=== PATIENT | female | born 1935 | race Caucasian/White ===

== ENCOUNTER 2019-04-03 10:24 | Observation (INO) | payer OTHER, BC, MEDICARE ==
[2019-04-03] MEDS ORDERED: ACETAMINOPHEN 1,000 MG/100 ML BTL IVPB ONE (10:37)
--- NOTE | 2019-04-03 10:37 | Emergency Department Record ---
History of Present Illness - General Chief Complaint: Trauma Stated Complaint: FALL/WOUND ON LEG Time Seen by Provider: 04/03/19 10:29 Source: Patient, EMS Mode of Arrival: EMS Limitations: No limitations - History of Present Illness Initial Comments: 83 yo female presents by EMS after a fall. The fall occurred in her home at about 8:30am. She was reaching for a magazine that had fallen on the floor and tripped on electrical cords. She denies hitting her head or neck. She is on Coumadin for "strokes". She reports she landed on her left hip/leg. She was unable to stand up due to pain. She denies and headache, neck pain, chest pain. She has mild left wrist pain as well. PCP is Dr Lyman in [place]. The pain in the left hip is sharp if the leg is moved. She is not if much pain is still. MD Complaint: Fall, Pain -: Hour(s) (2) Location: Pelvis Location - Extremities: Left: Hip Consistency: Constant Context: Mechanical fall Associated Symptoms: Denies other symptoms Treatments Prior to Arrival: Other - Related Data Previous Rx's Medication Instructions Recorded Ferrous Sulfate [Iron] 325 mg PO BID #60 tablet 04/27/15 Hydrocodone/Acetaminophen 1 tab PO Q8H PRN #20 tab 04/27/15 [Hydrocodone/Acetaminophen 5mg/325mg] Allergies Allergy/AdvReac Type Severity Reaction Status Date / Time cefaclor [From Ceclor] Allergy Severe HIVES Verified 04/03/19 10:35 clopidogrel bisulfate Allergy Severe ALTERED Verified 04/03/19 10:35 [From Plavix] MENTAL STATUS methylprednisolone sodium Allergy Severe ALTERED Verified 04/03/19 10:35 succinate MENTAL [From Solu-Medrol] STATUS Review of Systems Constitutional: Denies: Chills, Fever, Malaise, Weakness Eyes: Denies: Eye discharge ENT: Denies: Congestion, Throat pain Respiratory: Denies: Cough, Dyspnea Cardiovascular: Denies: Chest pain, Edema, Palpitations, Syncope Endocrine: Denies: Fatigue, Polydipsia, Polyuria Gastrointestinal: Denies: Abdominal pain, Diarrhea, Nausea, Vomiting Genitourinary: Denies: Discharge, Dysuria Musculoskeletal: Reports: As per HPI, Arthralgia, Myalgia. Denies: Back pain Skin: Reports: As per HPI, Bruising Neurological: Denies: Abnormal gait, Headache, Numbness, Seizure, Tingling, Tremors, Vertigo, Weakness Psychiatric: Denies: Anxiety Hematological/Lymphatic: Denies: Easy bleeding, Easy bruising Past Medical History - SOCIAL HISTORY Smoking Status: Former smoker - RESPIRATORY Hx Respiratory Disorders: Yes Hx Asthma: Yes Hx COPD: Yes - CARDIOVASCULAR Hx Cardio Disorders: Yes Hx Cardiac Cath: Yes Hx Heart Attack: Yes (X3) Hx Hypertension: Yes - NEURO Hx Neuro Disorders: Yes Hx Neuropathy: Yes Hx TIA: Yes Comment:: no residual from TIA - GI Hx GI Disorders: Yes Hx Irritable Bowel: Yes - Hx Genitourinary Disorders: No - ENDOCRINE Hx Endocrine Disorders: Yes Hx Diabetes: Yes (Type II) Hx Thyroid Disease: Yes (Hyper) - MUSCULOSKELETAL Hx Musculoskeletal Disorders: No - PSYCH Hx Psych Problems: No - HEMATOLOGY/ONCOLOGY Hx Hematology/Oncology Disorders: No Family Medical History Hx Diabetes: Father, Mother, Grandparents Hx Heart Disease: Father Hx HTN: Father Physical Exam - General General Appearance: Alert, Oriented x3, Cooperative, No acute distress Limitations: No limitations - Head Head exam: Atraumatic, Normocephalic, Normal inspection Head exam detail: negative: Abrasion, Contusion, Hematoma, Laceration - Eye Eye exam: Normal appearance, PERRL. negative: Conjunctival injection, Scleral icterus - ENT ENT exam: Normal exam, Mucous membranes moist Ear exam: Normal external inspection Nasal Exam: Normal inspection Mouth exam: Normal external inspection - Neck Neck exam: Normal inspection, Full ROM. negative: Tenderness - Respiratory Respiratory exam: Normal lung sounds bilaterally. negative: Respiratory distress, Rhonchi, Stridor, Wheezes - Cardiovascular Cardiovascular Exam: Regular rate, Normal rhythm, Normal heart sounds - GI/Abdominal GI/Abdominal exam: Soft. negative: Tenderness - Rectal Rectal exam: Deferred - exam: Deferred - Extremities Extremities exam: Tenderness. negative: Normal inspection, Calf tenderness, Full ROM Image of Full Body: 1 - tenderness, mild posterior bruising, pain with log roll, pain will flexion. Not short or rotated 2 - bruising, non tender, no pain with ROM - Back Back exam: Reports: Normal inspection, Full ROM. Denies: CVA tenderness (R), CVA tenderness (L), Muscle spasm, Paraspinal tenderness, Vertebral tenderness - Neurological Neurological exam: Alert, CN II-XII intact, Oriented X3. negative: Altered - Psychiatric Psychiatric exam: Normal affect, Normal mood - Skin Skin exam: Other (Bruising) Course - Reevaluation(s) Reevaluation #1: 04/03/19 11:27 The CBC was reviewed No acute abnormality The INR is 2.1 The BUN is 45 with CR of 1.3 04/03/19 12:41 The HCT was negative for acute process. Chronic age related changes noted The Pelvic CT was reviewed. No fractures or acute trauma visualized. No hemorrhage. Diverticulosis noted The patient has pain with ROM, and she is unable to bear weight or safety stand or walk. Given her age, unable to stand or ambulate she is not safe for DC Given her age, lives alone and pain I recommend admission for evaluation, recheck, and possible physical therapy This was discussed with Jeny Raymundo [employer] for admission Medical Decision Making - Lab Data Result diagrams: 04/03/19 10:17 04/03/19 10:17 Disposition Disposition: Admit Clinical Impression: Fall, Intractable pain, Renal insufficiency Contusion, hip Qualifiers: Encounter type: initial encounter Laterality: left Qualified Code(s): S70.02XA - Contusion of left hip, initial encounter Disposition: Acute Care Hospital Transfer Decision to Admit: Admit from ER Decision to Admit Date: 04/03/19 Decision to Admit Time: 12:43 Condition: (2) Stable Forms: Patient Portal Access Time of Disposition: 12:43 Quality - Quality Measures Quality Measures: N/A - Blood Pressure Screening Does Patient Have Any of the Following: Active Dx of HTN Blood Pressure Classification: Hypertensive Reading Systolic Measurement: 201 Diastolic Measurement: 95 Screening for High Blood Pressure: Patient Exclusion, Hx of HTN [[id number]]
[2019-04-03 10:55] LABS: HEMATOCRIT 45.1 % (35.0-47.0); HEMOGLOBIN 13.8 gm/dl (11.6-16.0); MEAN CELL VOLUME 86.1 fl (81-97); MEAN CORPUSCULAR HEMOGLOBIN 26.3 pg (27-33); MEAN CORPUSCULAR HGB CONC 30.6 g/dl (32-36); MEAN PLATELET VOLUME 11.1 fl (7.4-10.4); PLATELET COUNT 275 K/uL (130-400); RED BLOOD COUNT 5.24 M/uL (3.80-5.40); RED CELL DISTRIBUTION WIDTH 14.3 % (11.5-14.5); WHITE BLOOD COUNT W/O DIFF 8.6 K/uL (4.2-12.2)
[2019-04-03 11:05] LABS: INR 2.2; PARTIAL THROMBOPLASTIN TIME 35.7 SECONDS (24.5-39.1); PROTHROMBIN TIME (PATIENT) 21.4 SECONDS (9.5-12.1)
[2019-04-03 11:10] LABS: BILIRUBIN,TOTAL 0.3 mg/dL (0.2-1.0); CREATININE 1.3 mg/dL (0.5-0.9)
[2019-04-03 11:11] LABS: TOTAL PROTEIN 7.7 g/dL (6.6-8.7)
[2019-04-03 11:15] LABS: ALB/GLOB RATIO 1.1 (1.1-1.8); ALBUMIN 4.1 g/dL (4.0-5.0)
--- NOTE | 2019-04-03 12:28 | CT SCAN REPORT ---
EXAMINATION: CT Head without IV Contrast EXAM DATE: 04/03/2019 11:53 AM TECHNIQUE: Standard protocol CT images of the head were obtained without intravenous contrast. Pina l and sagittal reconstructed images were created. INDICATION: fall, on coumadin COMPARISON: CT brain April 22, 2015 HAND DOMINANCE: Unknown. ENCOUNTER: Not applicable FINDINGS: 1. There is no intracranial mass, midline shift, extraaxial fluid collection or hemorrhage. 2. The ventricles, sulci and cisterns are prominent consistent with mild diffuse cerebral atrophy.. 3. Mild areas of low-attenuation are seen in the periventricular white matter and subcortical white matter most consistent with chronic small vessel ischemia. No loss of womack-white matter differentiati on or sulcal effacement to indicate acute infarction. 4. No depressed or widely calvarial fracture. 5. The visualized aspects of the orbits, paranasal sinuses, and mastoid air cells are unremarkable e xcept for bilateral ocular lens replacement and scleral calcifications.. IMPRESSION: 1. No acute intracranial hemorrhage, mass lesion or mass effect. 2. No depressed or widely calvarial fracture. 3. Mild diffuse cerebral atrophy and chronic small vessel ischemia. Dictated by: Kelvin Philip MD on 04/03/2019 12:16 PM. .
--- NOTE | 2019-04-03 12:29 | CT SCAN REPORT ---
EXAMINATION: CT of the Pelvis without Intravenous Contrast. EXAM DATE: 04/03/2019 11:53 AM TECHNIQUE: A standard CT pelvis protocol was performed without intravenous contrast. Sagittal and cor onal images were reconstructed. INDICATION: fall, on coumadin COMPARISON: None ENCOUNTER: Not applicable FINDINGS: Ureters & Bladder: Both distal ureters have a normal caliber and the urinary bladder is unremarkable . Gastrointestinal: Colonic diverticulosis without evidence diverticulitis. Reproductive Organs: Status post hysterectomy. Lymphatic System: There is no adenopathy within the pelvis. Vasculature: Moderate atherosclerosis. No aneurysm. Peritoneum: There is no free fluid within the pelvis. Retroperitoneum: There is no retroperitoneal mass, hemorrhage, or hematoma. Abdominal Wall & Musculoskeletal: No acute pelvic or hip fracture or dislocation. Internal fixation h ardware transfixing an old, healed right hip fracture. No evidence of hardware failure or loosening. Mild to moderate degenerative changes within both hips and both sacroiliac joints. Degenerative disc disease at L4-L5 and L5-S1. There is no evidence of hematoma within the subcutaneous soft tissues. 3-D imaging: Performed. IMPRESSION: 1. No evidence of pelvic or hip fracture. 2. No evidence of hemorrhage within the pelvis. 3. Colonic diverticulosis. Dictated by: Sawyer Carvalho MD on 04/03/2019 12:20 PM. .
--- NOTE | 2019-04-03 12:30 | RADIOLOGY REPORT ---
EXAMINATION: Left Wrist Complete, Minimum Three Views EXAM DATE: 04/03/2019 12:00 PM TECHNIQUE: PA, lateral, and oblique INDICATION: fall COMPARISON: None ENCOUNTER: Initial FINDINGS: 3 views of the left wrist show no evidence of acute fracture or dislocation. Alignment is anatomic. M ild to moderate degenerative changes are present within the first carpal metacarpal joint. IMPRESSION: No fracture or dislocation. Dictated by: Sawyer Carvalho MD on 04/03/2019 12:27 PM. .
[2019-04-03] MEDS ORDERED: ALBUTEROL HFA 8 GM INHALER INH PRN (14:18)
[2019-04-03] MEDS ORDERED: 0.9 % SODIUM CHLORIDE 1000ML 1,000 ML IV ONE ×2 (14:18→16:44)
[2019-04-03] MEDS ORDERED: ACETAMINOPHEN 1,000 MG/100 ML BTL IVPB SCH (16:00)
--- NOTE | 2019-04-03 16:43 | History & Physical ---
History of Present Illness - Date of Service Date of Service for History & Physical: 04/04/19 - History of Present Illness Admitting Diagnosis: Fall, Intractable hip pain History of Present Illness: 83 y female presents to ER for fall at home, tripped on carpet, fell on right hip. Denies hitting head or LOC. Trauma code was activated r/t falling on couma din. Pt is on coumadin for Afib. PMH CHF, Afib, GI bleed, right hip FX. CT head neg for acute process, shows age r/t changes Pelvic CT- neg left hip, right hip replacement intact and correctly seated -Wrist XR neg Selected Entries 04/03/19 04/03/19 10:26 14:19 Temperature 97.9 F 98.1 F Pulse Rate 60 52 L Respiratory 20 20 Rate Blood Pressure 201/95 135/49 Pulse Ox 97 97 Oxygen Flow 2 2 Rate Oxygen Delivery Nasal Cannula Nasal Cannula Method Laboratory Tests 04/03/19 04/03/19 04/03/19 10:17 10:17 10:17 WBC 8.6 Hgb 13.8 Hct 45.1 MCV 86.1 Plt Count 275 PT 21.4 H INR 2.2 APTT 35.7 Sodium 139 Potassium 4.9 H Chloride 98 Carbon Dioxide 25.0 Anion Gap 16.0 BUN 45 H Creatinine 1.3 H Estimated GFR 42 Random Glucose 196 H Calcium 9.6 Total Bilirubin 0.30 AST 26 ALT 16 Alkaline Phosphatase 91 Total Protein 7.7 Albumin 4.1 Globulin 3.6 Albumin/Globulin Ratio 1.1 04/03/19 Pt sitting EOB, noted shortness of breath, crackles noted roland bases. BNP ordered, decreased fluid infusion. Pt able to stand and pivot to bedside commode with SBA. Pain controlled with tylenol at this time. No excessive bruising noted. Moving left and right leg with no difficulty. Pt is A&ox4. Continue to monitor VS and symptoms. POC PT/OT eval in the am, pain control, and ADL assistance. PCP [facility] Travel Screening - Travel/Exposure Within Last 30 Days Have you traveled within the last 30 days?: No - Travel/Exposure Within Last Year Have you traveled outside the [place] in the last year?: No - Additonal Travel Details Have you been exposed to anyone with a communicable illness?: No - Travel Symptoms Symptom Screening: None Review of Systems Constitutional: Denies: Chills, Fever, Malaise, Weakness Eyes: Denies: Eye discharge ENT: Denies: Congestion, Throat pain Respiratory: Denies: Cough, Dyspnea Cardiovascular: Denies: Chest pain, Edema, Palpitations, Syncope Endocrine: Denies: Fatigue, Polydipsia, Polyuria Gastrointestinal: Denies: Abdominal pain, Diarrhea, Nausea, Vomiting Genitourinary: Denies: Discharge, Dysuria Musculoskeletal: Reports: As per HPI, Arthralgia, Myalgia. Denies: Back pain Skin: Reports: As per HPI, Bruising Neurological: Denies: Abnormal gait, Headache, Numbness, Seizure, Tingling, Bacilio mors, Vertigo, Weakness Psychiatric: Denies: Anxiety Hematological/Lymphatic: Denies: Easy bleeding, Easy bruising Past Medical History - SOCIAL HISTORY Smoking Status: Former smoker Alcohol Use: None Drug Use: None - RESPIRATORY Hx Respiratory Disorders: Yes Hx Asthma: Yes Hx COPD: Yes - CARDIOVASCULAR Hx Cardio Disorders: Yes Hx Cardiac Cath: Yes Hx CHF: Yes Hx Heart Attack: Yes (X3) Hx Hypertension: Yes - NEURO Hx Neuro Disorders: Yes Hx Neuropathy: Yes Hx TIA: Yes (x3) Comment:: no residual from TIA - GI Hx GI Disorders: Yes Hx GI Bleed: Yes (cauterized lesions in stomach) Hx Irritable Bowel: Yes - Hx Genitourinary Disorders: Yes Hx Renal Disease: Yes (3rd stage CKD) - ENDOCRINE Hx Endocrine Disorders: Yes Hx Diabetes: Yes (Type II) Hx Thyroid Disease: Yes (Hypo) - MUSCULOSKELETAL Hx Musculoskeletal Disorders: No - PSYCH Hx Psych Problems: No - HEMATOLOGY/ONCOLOGY Hx Hematology/Oncology Disorders: No Hx Clotting Problems: Yes (factor IV ??) Hx Blood Transfusions: Yes Hx Blood Transfusion Reaction: No Family Medical History Any Significant Family History?: No Hx Diabetes: Father, Mother, Grandparents Hx Heart Disease: Father Hx HTN: Father H&P Meds/Allergies - Allergies Allergies: Allergies Allergy/AdvReac Type Severity Reaction Status Date / Time cefaclor [From Ceclor] Allergy Severe HIVES Verified 04/03/19 10:35 clopidogrel bisulfate Allergy Severe ALTERED Verified 04/03/19 10:35 [From Plavix] MENTAL STATUS methylprednisolone sodium Allergy Severe ALTERED Verified 04/03/19 10:35 succinate MENTAL [From Solu-Medrol] STATUS - Home Medications Home Medications Medication Instructions Recorded Confirmed Last Taken Fluticasone Propion/Salmeterol 1 puff INH BID 04/03/19 04/03/19 04/03/19 [Advair 250-50 Diskus] Furosemide [Lasix] 40 mg PO BID 04/03/19 04/03/19 04/03/19 Isosorbide Mononitrate [Imdur] 60 mg PO DAILY 04/03/19 04/03/19 04/03/19 Lisinopril [Prinivil] 5 mg PO DAILY 04/03/19 04/03/19 04/03/19 Melatonin 10 mg PO QHS 04/03/19 04/03/19 04/02/19 Montelukast Sodium [Singulair] 10 mg PO QHS 04/03/19 04/03/19 04/02/19 Pantoprazole Sodium [Protonix] 40 mg PO BID 04/03/19 04/03/19 04/03/19 Potassium Chloride [Klor-Con M20] 20 meq PO DAILY 04/03/19 04/03/19 04/03/19 Sitagliptin Phosphate [Januvia] 100 mg PO DAILY 04/03/19 04/03/19 04/03/19 Warfarin Sodium [Coumadin] 3 mg PO WEEKLY 04/03/19 04/03/19 04/03/19 - Active Medications Active Medications: Current Medications Acetaminophen (Tylenol 500mg Tab) 1,000 mg PO Q8HR ABDI[facility] Albuterol Sulfate (Ventolin Hfa) 2 puff INH Q4H PRN PRN Reason: DIFFICULTY IN BREATHING Sodium Chloride () 1,000 mls @ 100 mls/hr IV .Q10H ONE Stop: 04/04/19 00:17 (Tiotropium Sontag ([Spiriva] 1 Puff)) 1 puff INH DAILY ABDIEL Advair 250/50mcg 1 each INH BID [facility] Metoprolol Succinate (50mg) 1 each PO DAILY [facility] Warfarin 1mg 2 each PO QHS [facility] Isosorbide (Mononitrate Er 60mg) 1 each PO DAILY [facility] Lisinopril 5mg 1 each PO DAILY [facility] Melatonin 10mg 1 each PO QHS [facility] Montelukast 10mg 1 each PO QHS [facility] Pantoprazole 40mg 1 each PO BID [facility] Januvia (Sitagliptin () 100mg) 1 each PO DAILY [facility] Physical Exam - Vital Signs Vital Signs: Vital Signs - Last 24 Hrs Temp Pulse Pulse Resp BP BP Pulse Ox 04/03/19 15:48 20 04/03/19 14:21 58 L 20 153/76 04/03/19 14:19 98.1 F 52 L 20 135/49 97 04/03/19 10:26 97.9 F 60 20 201/95 97 - General General Appearance: Alert, Oriented x3, Cooperative, No acute distress Limitations: No limitations - Head Head exam: Atraumatic, Normocephalic, Normal inspection Head exam detail: negative: Abrasion, Contusion, Hematoma, Laceration - Eye Eye exam: Normal appearance, PERRL. negative: Conjunctival injection, Scleral icterus - ENT ENT exam: Normal exam, Mucous membranes moist Ear exam: Normal external inspection Nasal Exam: Normal inspection Mouth exam: Normal external inspection - Neck Neck exam: Normal inspection, Full ROM. negative: Tenderness - Respiratory Respiratory exam: Normal lung sounds bilaterally. negative: Respiratory distr ess, Rhonchi, Stridor, Wheezes - Cardiovascular Cardiovascular Exam: Regular rate, Normal rhythm, Normal heart sounds - GI/Abdominal GI/Abdominal exam: Soft. negative: Tenderness - Rectal Rectal exam: Deferred - exam: Deferred - Extremities Extremities exam: Tenderness. negative: Normal inspection, Calf tenderness, Full ROM - Back Back exam: Reports: Normal inspection, Full ROM. Denies: CVA tenderness (R), CVA tenderness (L), Muscle spasm, Paraspinal tenderness, Vertebral tenderness - Neurological Neurological exam: Alert, CN II-XII intact, Oriented X3. negative: Altered - Psychiatric Psychiatric exam: Normal affect, Normal mood - Skin Skin exam: Other (Bruising) Results - Labs Result Diagrams: 04/03/19 10:17 04/03/19 10:17 Labs Last 24 Hours: Laboratory Results - last 24 hr 04/03/19 04/03/19 04/03/19 10:17 10:17 10:17 WBC 8.6 RBC 5.24 Hgb 13.8 Hct 45.1 MCV 86.1 MCH 26.3 L MCHC 30.6 L RDW 14.3 Plt Count 275 MPV 11.1 H Neutrophils % 81.0 H Band Neutrophils % 0.0 Eosinophils % Not Reportable Basophils % Not Reportable Absolute Neutrophils 6.60 Lymphocytes 8.0 L Monocytes 9.0 Basophils 0.0 Eosinophil Count 2.0 PT 21.4 H INR 2.2 APTT 35.7 Sodium 139 Potassium 4.9 H Chloride 98 Carbon Dioxide 25.0 Anion Gap 16.0 BUN 45 H Creatinine 1.3 H Estimated GFR 42 Random Glucose 196 H Calcium 9.6 Total Bilirubin 0.30 AST 26 ALT 16 Alkaline Phosphatase 91 Total Protein 7.7 Albumin 4.1 Globulin 3.6 Albumin/Globulin Ratio 1.1 - Imaging and Cardiology CT scan - pelvis Status: Report reviewed CT scan - head Status: Report reviewed VTE H&P Assessment - Risk for VTE Risk for VTE: Yes Risk Level: High Risk Assessment Date: 04/03/19 Risk Assessment Time: 16:54 VTE Orders Placed or Will Be Placed: No VTE Reason for No Prophylaxis: Contraindicated (pt on coumadin for anticoagulation) Plan - Detailed Diagnosis and Plan (1) Contusion, hip Current Visit: Yes Status: Acute Qualifiers: Encounter type: initial encounter Laterality: left Qualified Code(s): S70 .02XA - Contusion of left hip, initial encounter Base Code: S70.00XA - CONTUSION OF UNSPECIFIED HIP, INITIAL ENCOUNTER Comment: 04/03/19 -bruising noted to left buttock, soft and mildly TTP -no abrasions noted (2) Acute pain Current Visit: Yes Status: Acute Base Code: R52 - PAIN, UNSPECIFIED Comment: 04/03/19 -pt up to bedside commode with SBA, pain controlled with tylenol (3) Fall Current Visit: Yes Status: Acute Base Code: W19.XXXA - UNSPECIFIED FALL, INITIAL ENCOUNTER Comment: 04/03/19 Pt fell at home, reports tripping on carpet, landing on left hip, denies hitting head (4) Renal insufficiency Current Visit: Yes Status: Acute Base Code: N28.9 - DISORDER OF KIDNEY AND URETER, UNSPECIFIED Comment: 04/03/19 -reports of chronic renal impairement noted by ER provider during report (5) Shortness of breath Current Visit: No Status: Acute Base Code: R06.02 - SHORTNESS OF BREATH Comment: 04/03/19 -pt has shortness of breath and crackles ROLAND -BNP pending, pt has h/o CHF -fluids at 50/hr but will give dieuretic and monitor symptoms (6) Anticoagulated on Coumadin Current Visit: No Status: Acute Base Code: Z51.81 - ENCOUNTER FOR THERAPEUTIC DRUG LEVEL MONITORING; Z79.01 - RETIREMENT (CURRENT) USE OF ANTICOAGULANTS Priority: High Comment: 04/03/19 -anticoagulated with coumadin, INR 2.2 -H/H 13.8/45.1 (7) DVT prophylaxis Current Visit: No Status: Acute Base Code: [id number] - Priority: High Comment: 04/03/19 -pt on coumadin, INR 2.2
[2019-04-03] MEDS: ACETAMINOPHEN 500 MG TABLET PO SCH ×2 (17:28→22:24)
[2019-04-03] MEDS ORDERED: MONTELUKAST 10MG PO SCH (22:00)
[2019-04-03] MEDS ORDERED: WARFARIN 1 MG PO SCH (22:00)
[2019-04-03] MEDS ORDERED: FERROUS SULFATE 325 MG TAB PO SCH (22:00)
[2019-04-03] MEDS ORDERED: MELATONIN 10MG PO SCH (22:00)
[2019-04-03] MEDS: PANTOPRAZOLE 40MG PO SCH (22:23)
[2019-04-03] MEDS: ADVAIR INH SCH (22:58)
[2019-04-04] MEDS: ACETAMINOPHEN 500 MG TABLET PO SCH (07:25)
[2019-04-04] MEDS: ADVAIR INH SCH (09:32)
--- NOTE | 2019-04-04 09:40 | Rehab Evaluation ---
Patient Information - Patient Information Diagnosis: hip contusion Ordered Treatment: PT Evaluate and Treat Status: Initial Evaluation History: Detail (The patient arrived in ED on 04/03/19 after tripping over an electrical cord and falling. The patient was unable to get up from the floor due to the height of her furniture per her report.) Past Medical/Surgical Hx: PAST MEDICAL/SURGICAL HISTORY Past Surgical History Hysterectomy Gallbladder Apendix T&A right TKR plate and screws in right hip PMH - Respiratory Hx Respiratory Disorders Yes Hx Asthma Yes Hx Chronic Obstructive Yes Pulmonary Disease (COPD) PMH - Cardiovascular Hx Cardiovascular Disorders Yes Hx Cardiac Catheterization Yes Hx Congestive Heart Failure Yes Hx Heart Attack Yes: X3 Hx Hypertension Yes Hx Transient Ischemic Attacks Yes: x3 (TIA) PMH - Neuro Hx Neurological Disorders Yes Hx Neuropathy Yes Hx Transient Ischemic Attacks Yes: x3 (TIA) Comment: no residual from TIA PMH - GI Hx Gastrointestinal Disorders Yes Hx Gastrointestinal Bleed Yes: cauterized lesions in stomach Hx Irritable Bowel Yes PMH - Hx Genitourinary Disorders Yes 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 Hx Blood Transfusion Reaction No Premorbid Status: Detail (The patient was independent with all ADL's prior to fall and was ambulatory without device except for community distances when she w ould use her 4 wheeled walker. The patient was driving.) Social History: Detail (The patient lives alone in a one story house with no stairs at the enterance. The patient does have to climb a flight of stairs on occasion to get into her car. The bathroom is equipped with: a walk in shower with a seat and grab bar, elevated toilet with no grab bars. The patient has a 4 wheeled walker and two canes ( straight cane and quad cane).) Precautions: [place], Fall - Time With Patient Total Time Spent With Patient (Min): 30 Treatment Procedures: Detail (Initial Evaluation, Fall prevention instruction.) Subjective Information - Subjective Information Per Patient (The patient has complaints of left hip soreness/ stiffness but not pain.) Objective Data - Mental Status Patient Orientation: Oriented x3 - Visual Perception Appears within normal limits for therapeutic activities - ROM Within normal limits (The patient's RLE AROM was WFL. L knee and ankle AROM was WNL. L hip was not tested due to complaints of soreness (pt. winced with hip movement), however the patient was able cross L leg over R to put her slipper on.) - Strength/Tone Within normal limits (The patient's R LE strength was generally 4+ to 5/5. L knee and ankle strength was 4+ to 5/5. Patient's L hip strength was not fully tested with resistance due to L hip soreness and pt. wincing with resistance however L hip strength was fuctional.) - Bed Mobility Independent (Bed mobility was not tested secondary to pt. was up in recliner however she denied difficulty getting in and out of bed.) - Transfers Independent (The patient was independent with sit to and from stand transfer.) - Balance Balance Sitting: Good Balance Standing: Good (The patient was able to stand without support and tolerate perturbations in all directions without loss of balance. The patient's balance was not formally using an objective balance test.) - Gait Detail (The patient ambulated without device a few steps but exhibited decreased tolerance to weight bearing on L LE. The patient ambulated with front wheeled walker a distance of 80 feet x1 with 2 L of O2 independently ( assist with equipment only). The patient's gait pattern was characterized by decreased weight bearing on L LE due to complaints of L hip soreness and stiffness. Stair climbing was not completed due to patient not having stairs at home.) Therapy Assessment - Therapy Assessment Detail (The patient was independent with all mobility however pt. exhibited decreased weight bearing on the L LE which PT feels will resolve with time. Pt. told to consult with primary physician if L hip soreness did not resolve. Discussed with pt. fall prevention techniques including how to get up from the floor, home inspection and exercise programs including radha chi. Pt. stated she has taken radha chi in the past which helped her balance. The patient was given written handouts on fall prevention. Due to independence with mobility patient does not require ongoing PT at this time. Pt. was in agreement with not requiring ongoing PT.) Patient Education - Patient Education Teaching Topic: Exercise/Activity (The patient was given fall prevention materials.) Response: Verbalize Understanding Teaching Method: Discussion, Handout Teaching Recipient: Family Barriers To Learning: Age Related Problem List - Problem List Physical Therapy Problem List: Detail (L hip soreness and stiffness.) Goals - Goals Physical Therapy Goals: No inpatient PT goals are identified at this time. Plan - Plan Physical Therapy Plan: The patient does not require inpt. or ongoing PT at this time. The patient was instructed to consult primary physician if L hip soreness and stiffness persisted.
[2019-04-04] MEDS ORDERED: PRAVASTATIN SODIUM PO SCH (10:00)
[2019-04-04] MEDS ORDERED: LOSARTAN PO SCH (10:00)
[2019-04-04] MEDS ORDERED: JANUVIA 100 MG PO SCH (10:00)
[2019-04-04] MEDS ORDERED: ISOSORBIDE MONONITRATE 60 MG PO SCH (10:00)
[2019-04-04] MEDS ORDERED: HYDROCHLOROTHIAZIDE PO SCH (10:00)
[2019-04-04] MEDS ORDERED: TIOTROPIUM BROMIDE INH SCH (10:00)
[2019-04-04] MEDS ORDERED: LISINOPRIL 5 MG PO SCH (10:00)
[2019-04-04] MEDS ORDERED: LEVOTHYROXINE SOD 112 MCG TAB PO SCH (10:00)
[2019-04-04] MEDS ORDERED: METOPROLOL SUCCINATE 50MG PO SCH (10:00)
[2019-04-04] MEDS: PANTOPRAZOLE 40MG PO SCH (10:07)
[2019-04-04] MEDS ORDERED: FUROSEMIDE IV 40MG/4ML VIAL IVP ONE (10:20)
--- NOTE | 2019-04-04 10:39 | Discharge Summary ---
Providers Discharge Summary Date: 04/04/19 Date of admission: 04/03/19 13:38 Expected Date of Discharge: 04/04/19 Attending physician: HILTON WEIR Primary care physician: SHARLA OCHOA M.D. Physical Exam - Vital Signs Vital Signs: Vital Signs - Last 24 Hrs Temp Pulse Pulse Resp BP BP Pulse Ox 04/04/19 09:34 88 16 92 L 04/04/19 05:24 98.7 F 68 20 172/60 93 L 04/03/19 21:16 97.7 F 55 L 18 156/43 92 L 04/03/19 17:00 16 98 04/03/19 15:48 20 04/03/19 14:21 58 L 20 153/76 99 04/03/19 14:19 98.1 F 52 L 20 135/49 97 - General General Appearance: Alert, Oriented x3, Cooperative, No acute distress Limitations: No limitations - Head Head exam: Atraumatic, Normocephalic, Normal inspection Head exam detail: negative: Abrasion, Contusion, Hematoma, Laceration - Eye Eye exam: Normal appearance, PERRL. negative: Conjunctival injection, Scleral icterus - ENT ENT exam: Normal exam, Mucous membranes moist Ear exam: Normal external inspection Nasal Exam: Normal inspection Mouth exam: Normal external inspection - Neck Neck exam: Normal inspection, Full ROM. negative: Tenderness - Respiratory Respiratory exam: Normal lung sounds bilaterally. negative: Respiratory distress, Rhonchi, Stridor, Wheezes - Cardiovascular Cardiovascular Exam: Regular rate, Normal rhythm, Normal heart sounds Peripheral Pulses: 2+: Dorsalis Pedis (R), Dorsalis Pedis (L) - GI/Abdominal GI/Abdominal exam: Soft. negative: Tenderness - Rectal Rectal exam: Deferred - exam: Deferred - Extremities Extremities exam: Tenderness (left buttock/hip). negative: Normal inspection, Calf tenderness, Full ROM - Back Back exam: Reports: Normal inspection, Full ROM. Denies: CVA tenderness (R), CV A tenderness (L), Muscle spasm, Paraspinal tenderness, Vertebral tenderness - Neurological Neurological exam: Alert, CN II-XII intact, Oriented X3. negative: Altered - Psychiatric Psychiatric exam: Normal affect, Normal mood - Skin Skin exam: Other (Bruising) Hospitalization - Hospitalization Admission Diagnosis: Fall, Intractable hip pain - Problem List/Discharge Diagnosis (1) Contusion, hip Current Visit: Yes Status: Acute Discharge Diagnosis: Encounter type: initial encounter Laterality: left Qualified Code(s): S70.02XA - Contusion of left hip, initial encounter Base Code: S70.00XA - CONTUSION OF UNSPECIFIED HIP, INITIAL ENCOUNTER Comment: 04/04/19 -bruising remains soft, no current concers for hematoma 04/03/19 -bruising noted to left buttock, soft and mildly TTP -no abrasions noted (2) Acute pain Current Visit: Yes Status: Acute Base Code: R52 - PAIN, UNSPECIFIED Comm ent: 04/04/19 -pt denies any pain with ambulation, using walker per baseline 04/03/19 -pt up to bedside commode with SBA, pain controlled with tylenol (3) Fall Current Visit: Yes Status: Acute Base Code: W19.XXXA - UNSPECIFIED FALL, INITIAL ENCOUNTER Comment: 04/04/19 -PT/OT has cleared pt to d/c with out need for home PT/OT -pt daughter staying with her for a few days while she is recovering from her fall 04/03/19 Pt fell at home, reports tripping on carpet, landing on left hip, denies hitting head (4) Renal insufficiency Current Visit: Yes Status: Acute Base Code: N28.9 - DISORDER OF KIDNEY AND URETER, UNSPECIFIED Comment: 04/03/19 -reports of chronic renal impairement noted by ER provider during report (5) Shortness of breath Current Visit: No Status: Acute Base Code: R06.02 - SHORTNESS OF BREATH Comment: 04/04/19 -SOB has resolved, lungs DIM but no crackles noted -BNP 1300, lasix 40mg IVP given and pt to return to her Lasix 40mg BID PO home med 04/03/19 -pt has shortness of breath and crackles ROLAND -BNP pending, pt has h/o CHF -fluids at 50/hr but will give dieuretic and monitor symptoms (6) Anticoagulated on Coumadin Current Visit: No Status: Acute Base Code: Z51.81 - ENCOUNTER FOR THERAPEUTIC DRUG LEVEL MONITORING; Z79.01 - SKILLED NURSING (CURRENT) USE OF ANTICOAGULANTS Comment: 04/04/19 -anticoagulated with coumadin, INR 2.2 -H/H 13.8/45.1 (7) DVT prophylaxis Current Visit: No Status: Acute Base Code: [id number] - Comment: 04/04/19 -pt on coumadin, INR 2.2 - Hospitalization Course Disposition: Home, Self-Care Hospital Course: 83 y female presents to ER for fall at home, tripped on carpet, fell on right hip. Denies hitting head or LOC. Trauma code was activated r/t falling on coumadin. Pt is on coumadin for Afib. PMH CHF, Afib, GI bleed, right hip FX. CT head neg for acute process, shows age r/t changes Pelvic CT- neg left hip, right hip replacement intact and correctly seated -Wrist XR neg Selected Entries 04/03/19 04/03/19 10:26 14:19 Temperature 97.9 F 98.1 F Pulse Rate 60 52 L Respiratory 20 20 Rate Blood Pressure 201/95 135/49 Pulse Ox 97 97 Oxygen Flow 2 2 Rate Oxygen Delivery Nasal Cannula Nasal Cannula Method Laboratory Tests 04/03/19 04/03/19 04/03/19 10:17 10:17 10:17 WBC 8.6 Hgb 13.8 Hct 45.1 MCV 86.1 Plt Count 275 PT 21.4 H INR 2.2 APTT 35.7 Sodium 139 Potassium 4.9 H Chloride 98 Carbon Dioxide 25.0 Anion Gap 16.0 BUN 45 H Creatinine 1.3 H Estimated GFR 42 Random Glucose 196 H Calcium 9.6 Total Bilirubin 0.30 AST 26 ALT 16 Alkaline Phosphatase 91 Total Protein 7.7 Albumin 4.1 Globulin 3.6 Albumin/Globulin Ratio 1.1 04/03/19 Pt sitting EOB, noted shortness of breath, crackles noted roland bases. BNP ordered, decreased fluid infusion. Pt able to stand and pivot to bedside commode with SBA. Pain controlled with tylenol at this time. No excessive bruising noted. Moving left and right leg with no difficulty. Pt is A&ox4. Continue to monitor VS and symptoms. POC PT/OT eval in the am, pain control, and ADL assistance. PCP Esmer Procedures: Imaging and X-Rays 04/03/19 10:30 HEAD WO CONTRAST [CT] Stat PELVIS WO CONTRAST [CT] Stat 04/03/19 10:32 WRIST, LEFT 3 VIEWS [RAD] Stat Cardiology Procedures 04/03/19 10:30 Housing Management Officer NOW Abnormal Labs: Abnormal Lab Results 04/03/19 04/03/19 04/03/19 Range/Units 10:17 10:17 10:17 MCH 26.3 L (27-33) pg MCHC 30.6 L (32-36) g/dl MPV 11.1 H (7.4-10.4) fl Neutrophils % 81.0 H (47-80) % Lymphocytes 8.0 L (16-45) % PT 21.4 H (9.5-12.1) SECONDS Potassium 4.9 H (3.4-4.5) mmol/L BUN 45 H (8-23) mg/dL Creatinine 1.3 H (0.5-0.9) mg/dL Random Glucose 196 H (74-109) mg/dL NT-Pro-B Natriuret Pep (<450) pg/mL 04/03/19 Range/Units 10:17 MCH (27-33) pg MCHC (32-36) g/dl MPV (7.4-10.4) fl Neutrophils % (47-80) % Lymphocytes (16-45) % PT (9.5-12.1) SECONDS Potassium (3.4-4.5) mmol/L BUN (8-23) mg/dL Creatinine (0.5-0.9) mg/dL Random Glucose (74-109) mg/dL NT-Pro-B Natriuret Pep 1338.00 H (<450) pg/mL Condition at Discharge: (2) Stable Discharge Medications - Discharge Medications Home Medications: Ambulatory Orders Metoprolol Succinate [Toprol Xl] 50 mg PO DAILY 04/22/15 [Last Taken 04/03/19] Pravastatin Sodium 1 tab PO DAILY 04/22/15 [Last Taken 04/03/19] Tiotropium [place] [Spiriva] 1 puff INH DAILY 04/22/15 [Last Taken 04/03/19] Warfarin Sodium 2 tab PO QHS 04/22/15 [Last Taken 04/03/19] Fluticasone Propion/Salmeterol [Advair 250-50 Diskus] 1 puff INH BID 04/03/19 [Last Taken 04/03/19] Furosemide [Lasix] 40 mg PO BID 04/03/19 [Last Taken 04/03/19] Isosorbide Mononitrate [Imdur] 60 mg PO DAILY 04/03/19 [Last Taken 04/03/19] Lisinopril [Prinivil] 5 mg PO DAILY 04/03/19 [Last Taken 04/03/19] Melatonin 10 mg PO QHS 04/03/19 [Last Taken 04/02/19] Montelukast Sodium [Singulair] 10 mg PO QHS 04/03/19 [Last Taken 04/02/19] Pantoprazole Sodium [Protonix] 40 mg PO BID 04/03/19 [Last Taken 04/03/19] Potassium Chloride [Klor-Con M20] 20 meq PO DAILY 04/03/19 [Last Taken 04/03/19] Sitagliptin Phosphate [Januvia] 100 mg PO DAILY 04/03/19 [Last Taken 04/03/19] Warfarin Sodium [Coumadin] 3 mg PO WEEKLY 04/03/19 [Last Taken 04/03/19] Acetaminophen [Tylenol 500Mg Tab] 1,000 mg PO Q8HR tablet 04/04/19 [Last Taken Unknown] Albuterol Sulfate [Ventolin Hfa] 2 puff INH Q4H PRN inhaler 04/04/19 [Last Taken Unknown] Discharge Plan - Discharge Instructions Activity at Discharge: As Per Physical Therapy, Increase Activity as Tolerated Diet at Discharge: Advance to Usual Diet Additional Instructions: You have an appointment with Dr Ochoa, 1:45pm 04/09/19. Please continue to monitor your symptoms. Try to remove rugs and fall hazards from your home. Return to ER for headache, shortness of breath, increased hip pain, vision changes, or confusion. Quality Measures - Quality Measures Quality Measures: Advance Directives, Documentation of Current Medications in Medical Record, Elder Maltreatment Screen and Follow-Up Plan, Screening for High Blood Pressure and F/U Documented - Current Medications Quality Measure: Measure #130: Documentation of Current Medications Documentation of Current Medications: <Current Medications Documented/Reviewed> [G8427] - Blood Pressure Screening Quality Measure: Screening for High Blood Pressure and Follow-Up Documented Does Patient Have Any of the Following: Active Dx of HTN Blood Pressure Classification: Pre-Hypertensive BP Reading Systolic Measurement: 135 Diastolic Measurement: 49 Screening for High Blood Pressure: Patient Exclusion, Hx of HTN [G9744] - Advance Directives Quality Measure: Measure #47: Care Plan Advance Directives Established: No Advance Directives Information Provided To Patient: No Advance Directives on File: No Living Will: No Power of Credit Compliance Officer: No Advance Care Planning: <Care Plan/Decision Maker Documented; Discussed & Documented> [[id number]] - Elder Abuse Suspicion Index Screening: Elder Abuse Suspicion Index Screening Rely on people for bathing, dressing, shopping, banking, etc: No Prevented from getting food, clothes, medication, etc: No Made to feel shamed or threatened by someone: No Forced to sign papers or use money against will: No Feel afraid, touched in ways not wanted or hurt physically: No Poor eye contact, withdrawn, malnourished, cuts or bruises: No Screening Result: Negative result EASI Reference Information: Danny ISBELL, Enrrique C, Pawan D, Fortino Teague.Development and validation of a tool to assist physicians identification of elder abuse: The Elder Abuse Suspicion Index (EASI ). Journal of Elder Abuse and Neglect, 2008; 20 (3): 276-300. - Elder Maltreatment Screen Quality Measures: Elder Maltreatment Screen and Follow-Up Plan Elder Maltreatment Screen: <Negative, No Follow-Up Plan Required> [G8734]
--- NOTE | 2019-04-04 12:07 | Rehab Evaluation ---
Patient Information - Patient Information Diagnosis: fall, intractable hip pain Ordered Treatment: OT Evaluate and Treat Status: Initial Evaluation Surgery: No History: Detail (The patient arrived in ED on 04/03/19 after tripping over an electrical cord and falling. The patient was unable to get up from the floor due to the height of her furniture per her report.) Past Medical/Surgical Hx: PAST MEDICAL/SURGICAL HISTORY Past Surgical History Hysterectomy Gallbladder Apendix T&A right TKR plate and screws in right hip PMH - Respiratory Hx Respiratory Disorders Yes Hx Asthma Yes Hx Chronic Obstructive Yes Pulmonary Disease (COPD) PMH - Cardiovascular Hx Cardiovascular Disorders Yes Hx Cardiac Catheterization Yes Hx Congestive Heart Failure Yes Hx Heart Attack Yes: X3 Hx Hypertension Yes Hx Transient Ischemic Attacks Yes: x3 (TIA) PMH - Neuro Hx Neurological Disorders Yes Hx Neuropathy Yes Hx Transient Ischemic Attacks Yes: x3 (TIA) Comment: no residual from TIA PMH - GI Hx Gastrointestinal Disorders Yes Hx Gastrointestinal Bleed Yes: cauterized lesions in stomach Hx Irritable Bowel Yes PMH - Hx Genitourinary Disorders Yes 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 Hx Blood Transfusion Reaction No Premorbid Status: Detail (The patient was independent with all ADL's and IADL's prior to fall and was ambulatory without device except for community distances when she would use her 4 wheeled walker. The patient was driving. 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 The patient does have to climb a flight of stairs on occasion to get into her car. The bathroom is equipped with: a walk in shower with a seat and grab bar and an elevated toilet with no grab bars. The patient has a 4 wheeled walker and two canes ( straight cane and quad cane).) Precautions: [place], Fall - Time With Patient Total Time Spent With Patient (Min): 30 Treatment Procedures: Detail (OT eval low complexity) Subjective Information - Subjective Information Per Patient Objective Data - Pain Pain Present: No - Mental Status Patient Orientation: Oriented x3 - Visual Perception Appears within normal limits for therapeutic activities - ROM Within normal limits (Yong UE AROM WNL) - Strength/Tone Within normal limits (Yong UE strength 4+/5) - Coordination Appears within normal limits for therapeutic activities - Bed Mobility Independent (Per pt reports she is Ind with bed mobility) - Transfers Independent (Ind with sit to stand from chair height) - Balance Balance Sitting: Good Balance Standing: Good - Sensation Intact - Gait Detail (Pt ambulating in hallway with 2 wheeled walker) - ADL's/IADL's Detail (Pt able to demonstrate doffing and donning yong slipper socks Indly. She did not have any other clothing here but she reports she is not concerned about caring for herself after discharge.) Therapy Assessment - Therapy Assessment Detail (Pt is Ind with functional mobility and partial lower body dressing.) Problem List - Problem List Physical Therapy Problem List: Detail (L hip soreness and stiffness.) Occupational Therapy Problem List: Detail (No current IP OT problems iden tified.) Goals - Goals Physical Therapy Goals: No inpatient PT goals are identified at this time. Occupational Therapy Goals: No IP OT goals identified. Prognosis - Prognosis Good Plan - Plan Physical Therapy Plan: The patient does not require inpt. or ongoing PT at this time. The patient was instructed to consult primary physician if L hip soreness and stiffness persisted. Occupational Therapy Plan: No further OT recommended at this time. Thank you for this referral.
== END 2019-04-04 11:55 | disposition home or self-care (01) ==
LOC: ER 10:24 → MEDSURG 13:38 → INTOOBSV 13:38
PROVIDERS: ADMIT Internal Medicine; ATTEND Internal Medicine
DX: M25.552 Pain in left hip (principal); W18.39XA Other fall on same level, initial encounter; M25.532 Pain in left wrist; R06.02 Shortness of breath; J44.9 Chronic obstructive pulmonary disease, unspecified; I48.91 Unspecified atrial fibrillation; I10 Essential (primary) hypertension; E11.9 Type 2 diabetes mellitus without complications; E03.9 Hypothyroidism, unspecified; G62.9 Polyneuropathy, unspecified; I25.2 Old myocardial infarction; J45.909 Unspecified asthma, uncomplicated; Z87.891 Personal history of nicotine dependence; Z98.61 Coronary angioplasty status; Z79.01 Long term (current) use of anticoagulants; Z51.81 Encounter for therapeutic drug level monitoring; Z86.73 Personal history of transient ischemic attack (TIA), and cerebral infarction without residual deficits; N28.9 Disorder of kidney and ureter, unspecified; N18.3 Chronic kidney disease, stage 3 (moderate)
CPT/HCPCS: 70450; 72192; 80053; 82272; 83880; 85027; 85610; 85730; 94640; 96365; 99220; 99285